=== PATIENT | female | born 1945 | race Caucasian/White ===

== ENCOUNTER → 2021-03-25 | Outpatient (CLI) | payer MEDICARE, OTHER ==
--- NOTE | 2021-03-25 11:04 | US ---
EXAMINATION TYPE: US liver DATE OF EXAM: 03/25/2021 COMPARISON: Prior ultrasound 07/04/2013, CT liver biopsy 09/15/2013 CLINICAL HISTORY: R94.5 Abnormal Liver Function test. EXAM MEASUREMENTS: Liver Length: 21.5 cm Gallbladder Wall: 0.5 cm CBD: 0.3 cm Right Kidney: 12.7 x 3.9 x 4.8 cm Pancreas: visualized portions wnl Liver: enlarged, difficult to penetrate Gallbladder: multiple mobile stones with shadowing Evidence for sonographic Gonzalez's sign: No CBD: wnl Right Kidney: No hydronephrosis or masses seen IMPRESSION: Correlate for hepatic steatosis, hepatocellular disease, liver is enlarged. Cholelithiasi s.
--- NOTE | 2021-03-25 18:01 | ECHOF ---
Referral Reason:R01.1 murmur MEASUREMENTS -------- HEIGHT: 165.1 cm WEIGHT: 108.9 kg BP: 167/79 IVSd: 1.4 cm (0.6 - 1.1) LVIDd: 4.1 cm (3.9 - 5.3) LVPWd: 1.4 cm (0.6 - 1.1) EDV(Teich): 72 ml IVSs: 1.5 cm LVIDs: 3.0 cm LVPWs: 2.1 cm %IVS Thck: 7 % ESV(Teich): 35 ml EF(Teich): 52 % %FS: 26 % SV(Teich): 38 ml LA Diam: 3.6 cm (2.7 - 3.8) RVIDd: 3.2 cm (< 3.3) Ao Diam: 3.4 cm (2.0 - 3.7) AV Cusp: 1.3 cm (1.5 - 2.6) EPSS: 0.8 cm MV E Kaleb: 0.61 m/s MV DecT: 413 ms MV Dec Grimes: 1.5 m/s MV A Kaleb: 0.75 m/s MV E/A Ratio: 0.81 MV PHT: 120 ms LVOT Vmax: 1.33 m/s LVOT maxP.11 mmHg AV Vmax: 2.29 m/s AV maxP.97 mmHg AV Vmax: 2.35 m/s AV Vmean: 1.63 m/s AV maxP.00 mmHg AV meanP.23 mmHg AV Env.Ti: 263 ms AV VTI: 43.0 cm TR Vmax: 1.99 m/s TR maxP.86 mmHg RAP: 5.00 mmHg RVSP: 20.86 mmHg MV EF SLOPE: 30.09 mm/s (70 - 150) MV EXCURSION: 11.11 mm (> 18.000) FINDINGS -------- Sinus rhythm. This was a technically adequate study. The left ventricular size is normal. There is moderate concentric left ventricular hypertrophy. O verall left ventricular systolic function is normal with, an EF between 60 - 65 %. The right ventricle is normal in size. The left atrium is normal in size. The right atrium is normal in size. Interatrial and interventricular septum intact. There is mild aortic valve sclerosis. There is mild aortic stenosis present. Peak/mean gradient a cross the Aortic Valve is 22.00mmHg / 12.23mmHg. The mitral valve leaflets are mildly thickened. Mild mitral annular calcification present. There is trace to mild mitral regurgitation. Mild tricuspid regurgitation present. Right ventricular systolic pressure is normal at < 35 mmHg. There is no pulmonic regurgitation present. The aortic root size is normal. Normal inferior vena cava with normal inspiratory collapse consistent with estimated right atrial pre ssure of 5 mmHg. There is no pericardial effusion. CONCLUSIONS -------- 1. The left ventricular size is normal. 2. There is moderate concentric left ventricular hypertrophy. 3. Overall left ventricular systolic function is normal with, an EF between 60 - 65 %. 4. There is mild aortic valve sclerosis. 5. There is mild aortic stenosis present. 6. Peak/mean gradient across the Aortic Valve is 22.00mmHg / 12.23mmHg. 7. The mitral valve leaflets are mildly thickened. 8. Mild mitral annular calcification present. 9. There is trace to mild mitral regurgitation. 10. Mild tricuspid regurgitation present. 11. There is no pericardial effusion. CURRENCY EXAMINER: Leyla Rausch RDCS
== END ==
LOC: RADUSWWP 08:15
PROVIDERS: ATTEND Family Medicine
DX: R01.1 Cardiac murmur, unspecified (principal); R16.0 Hepatomegaly, not elsewhere classified; I70.90 Unspecified atherosclerosis; I08.3 Combined rheumatic disorders of mitral, aortic and tricuspid valves
CPT/HCPCS: 76705; 93306

== ENCOUNTER → 2021-06-02 | Outpatient (CLI) | payer MEDICARE, OTHER ==
--- NOTE | 2021-06-02 10:26 | US ---
EXAMINATION TYPE: US kidneys/renal and bladder DATE OF EXAM: 06/02/2021 COMPARISON: Liver ultrasound 03/25/2021 CLINICAL HISTORY: 76-year-old female N28.9 CKD. TECHNIQUE: Multiple sonographic images of the kidneys and bladder are obtained. FINDINGS: EXAM MEASUREMENTS: Right Kidney: 9.7 x 5.2 x 4.8 cm (on 03/25/2021, measured at 12.7 cm) Left Kidney: 12.5 x 5.5 x 4.8 cm Right Kidney: No hydronephrosis or masses seen Left Kidney: no hydronephrosis or masses seen Bladder: not fully distended Bilateral Jets seen: no IMPRESSION: 1. The right kidney is currently measuring smaller at 9.7 cm (versus 12.7 cm on 03/25/2021). We suspec t technical differences rather than interval decrease in size. 2 the 3 month follow-up ultrasound to reassess. 2. No hydronephrosis.
== END | disposition home or self-care (01) ==
LOC: RADUSWWP 08:38
PROVIDERS: ATTEND Family Medicine
DX: N18.9 Chronic kidney disease, unspecified (principal)
CPT/HCPCS: 76770